=== PATIENT | female | born 1990 | race Caucasian/White ===

== ENCOUNTER 2023-04-24 12:53 | Inpatient (IN) | payer OTHER ==
[2023-04-24] MEDS ORDERED: Sodium Chloride 0.9% 10 ML Syringe FLUSH PRN (13:40)
[2023-04-24] MEDS ORDERED: Nalbuphine 10 MG/0.5 ML Syringe IVPUSH PRN (13:42)
[2023-04-24] MEDS: Misoprostol 25 MCG (1/4 of 100 MCG) Tab VAG PRN ×3 (14:00→23:19)
[2023-04-24 14:19] LABS: HEMATOCRIT 35.3 % (34.1-44.9); HEMOGLOBIN 11.8 gm/dl (11.2-15.7); MEAN CORPUSCULAR HEMOGLOBIN 29.2 pg (25.6-32.2); MEAN CORPUSCULAR HGB CONC 33.4 g/dl (32.2-35.5); MEAN CORPUSCULAR VOLUME 87.4 fl (79.4-94.8); MEAN PLATELET VOLUME 11.9 fl (9.4-12.3); PLATELET COUNT,PLT 172 K/mm3 (182-369); RED BLOOD CELL COUNT 4.04 M/mm3 (3.98-5.22); WHITE BLOOD CELL COUNT,WBC 10.49 K/mm3 (3.98-10.04)
[2023-04-24 14:34] LABS: CREATININE 0.7 mg/dL (0.55-1.02); EST CRCL DRUG DOSING (CG) 112.2 mL/min
[2023-04-24 14:41] LABS: CREATININE,URINE RAND 58.7 mg/dL (30.0-125.0)
[2023-04-24 14:46] LABS: PROTEIN,URINE RANDOM < 6.0 mg/dL (0.0-11.8)
[2023-04-24] MEDS ORDERED: ePHEDrine 50 MG/ML SDV IVPUSH PRN (15:09)
[2023-04-24] MEDS ORDERED: fentaNYL 100 MCG/2 ML SDV EPIDUR PRN (15:09)
[2023-04-24] MEDS ORDERED: diphenhydrAMINE 50 MG/ML SDV IVPUSH PRN (15:09)
[2023-04-24] MEDS ORDERED: Bupivacaine/fentaNYL/NS 100 ML Bag EPIDUR PRN (15:09)
[2023-04-24] MEDS ORDERED: Sodium Chloride 0.9% 10 ML Syringe FLUSH SCH (21:00)
[2023-04-25] MEDS ORDERED: Penicillin G Potassium 5 MILLUNITS in Sodium Chloride 0.9% 100 ML IV ONE (02:00)
[2023-04-25] MEDS: Lactated Ringers 1,000 ML IV SCH ×3 (02:06→08:17)
[2023-04-25] MEDS: Oxytocin/Lactated Ringers 10 UNIT/1,000 ML BAG IV SCH ×2 (03:02→17:19)
[2023-04-25] MEDS: Penicillin G Potassium 2.5 MILLUNITS in Sodium Chloride 0.9% 100 ML IV SCH ×3 (06:00→14:24)
[2023-04-25] MEDS: Ondansetron 4 MG/2 ML SDV IVPUSH PRN ×2 (08:17→14:39)
[2023-04-25] MEDS ORDERED: Penicillin G Potassium 5,000,000 Unit Vial ONE (09:40)
[2023-04-25] MEDS ORDERED: Ropivacaine 0.2% PF 2 MG/ML 20 ML SDV ONE (12:00)
[2023-04-25] MEDS ORDERED: Carboprost Tromethamine 250 MCG/1 ML Amp IM ONE (17:17)
[2023-04-25] MEDS ORDERED: Docusate Sodium 100 MG Cap PO PRN (19:27)
[2023-04-25] MEDS ORDERED: Benzocaine/Menthol 20%-0.5% Spray 78 GM Cannister TOP PRN (19:27)
[2023-04-25] MEDS ORDERED: Acetaminophen 325 MG Tab PO PRN (19:27)
[2023-04-25] MEDS ORDERED: Witch Hazel Medicated Pads 40/Jar TOP PRN (19:27)
[2023-04-25] MEDS ORDERED: Ibuprofen 600 MG Tab PO PRN (19:27)
== END 2023-04-27 09:58 | disposition home or self-care (01) | DRG 807 ==
LOC: JD.OBCHECK 12:53 → JD.OB 12:56 → JD.OBCHECK 13:39 → JD.OB 13:40 → OBSVTOIN 16:55 → JD.OB 04-25 16:56
PROVIDERS: ADMIT Obstetrics & Gynecology; ATTEND Obstetrics & Gynecology
PROC: 10E0XZZ Delivery of Products of Conception, External Approach (ICD-10-PCS; principal; 2023-04-24)
PROC: 3E0P7VZ Introduction of Hormone into Female Reproductive, Via Natural or Artificial Opening (ICD-10-PCS; 2023-04-24)
PROC: 3E033VJ Introduction of Other Hormone into Peripheral Vein, Percutaneous Approach (ICD-10-PCS; 2023-04-24)
PROC: 0U7C7ZZ Dilation of Cervix, Via Natural or Artificial Opening (ICD-10-PCS; 2023-04-24)
PROC: 10907ZC Drainage of Amniotic Fluid, Therapeutic from Products of Conception, Via Natural or Artificial Opening (ICD-10-PCS; 2023-04-24)
PROC: 3E0R3BZ Introduction of Anesthetic Agent into Spinal Canal, Percutaneous Approach (ICD-10-PCS; 2023-04-24)
PROC: 00HU33Z Insertion of Infusion Device into Spinal Canal, Percutaneous Approach (ICD-10-PCS; 2023-04-24)
PROC: 0HQ9XZZ Repair Perineum Skin, External Approach (ICD-10-PCS; 2023-04-24)
DX: O13.4 Gestational [pregnancy-induced] hypertension without significant proteinuria, complicating childbirth (principal); Z37.0 Single live birth; O42.02 Full-term premature rupture of membranes, onset of labor within 24 hours of rupture; O70.0 First degree perineal laceration during delivery; O99.824 Streptococcus B carrier state complicating childbirth; Z3A.37 37 weeks gestation of pregnancy
CPT/HCPCS: 01967; 36415; 51701; 51702; 59025; 59409; 82565; 82570; 84156; 84450; 84460; 85027; 86592; 86850; 86900; 86901; A9270-GY; C1726; J2405; J2540; J2590; J2795; J3490; J7120